=== PATIENT | male | born 1995 | race Caucasian/White ===

== ENCOUNTER 2018-04-08 10:58 | Emergency (ER) | payer OTHER ==
[~2018-04-08] VITALS: Ht 170.2 cm; Wt 59.0 kg
[2018-04-08 11:01] VITALS: BP 116/54
--- NOTE | 2018-04-08 11:11 | ED GENERAL ADULT ---
History of Present Illness General Chief Complaint: Male Genitourinary Problems Stated Complaint: STD TESTING Source: patient Exam Limitations: no limitations Vital Signs & Intake/Output Vital Signs & Intake/Output Vital Signs Date Time Temp Pulse Resp B/P B/P Pulse O2 O2 Flow FiO2 Mean Ox Delivery Rate 04/08 1101 97.4 110 20 116/54 98 Room Air Allergies Coded Allergies: No Known Allergies (06/10/17) Reconcile Medications No Known Home Medications Triage Note: PT TO ED REQUESTING STD TESTING. DENIES S/S. Triage Nurses Notes Reviewed? yes HPI: 22-year-old male presents emergency Department requesting STD screening. Patient states that he called [facility] and they recommended he go to the walk-in for STD screening. He has not been exposed to any STDs that he is aware of, no new sexual partners. He is monogammous with his girlfriend. He states he just wants to get checked out. He has no current symptoms. No dysuria, penile discharge, abdominal pain, fevers, joint pains, lesions. (Alyssia Billings) Past History Travel History Traveled to [place] past 21 day No Medical History Any Pertinent Medical History? none Surgical History Surgical History: non-contributory Psychosocial History What is your primary language Indonesian Tobacco Use: Never used ETOH Use: denies use Illicit Drug Use: denies illicit drug use Family History Hx Contributory? No (Alyssia Billings) Review of Systems Review of Systems Constitutional: Reports: no symptoms. EENTM: Reports: no symptoms. Respiratory: Reports: no symptoms. Cardiovascular: Reports: no symptoms. GI: Reports: no symptoms. Genitourinary: Reports: see HPI. Musculoskeletal: Reports: no symptoms. Skin: Reports: no symptoms. Neurological/Psychological: Reports: no symptoms. Hematologic/Endocrine: Reports: no symptoms. Immunologic/Allergic: Reports: no symptoms. All Other Systems: Reviewed and Negative (Alyssia Billings) Physical Exam Physical Exam General Appearance: well developed/nourished, no apparent distress, alert, awake Head: atraumatic, normal appearance Eyes: Bilateral: normal appearance. Ears, Nose, Throat: hearing grossly normal Neck: normal inspection, supple, full range of motion Respiratory: no respiratory distress Back: normal inspection, normal range of motion Extremities: normal inspection Neurologic/Psych: awake, alert, oriented x 3 Skin: intact, normal color, warm/dry Core Measures ACS in differential dx? No CVA/TIA Diagnosis: No Sepsis Present: No Sepsis Focused Exam Completed? No (Kaye SUMMERS,Alyssia Pollock) Progress Differential Diagnoses I considered the following diagnoses in my evaluation of the patient: [Sexually- transmitted infection, STD screening] Plan of Care: Orders Procedure Date/time Status CHLAMYDIA-GC DNA PROBE 04/08 1108 Active Microbiology 04/08 1109 URINE ROUT: GC DNA Probe - RECD 04/08 1109 URINE ROUT: Chlamydia DNA Probe (LUIS E) - RECD Patient was offered urine STD screening as well as blood tests to assess for HIV , SYPHILIS, HEPATITS. He requests urine screening only, declines blood tests. As patient is asymptomatic and reports no known exposure prophlactic treatment withheld pending gc/chlamydia results. Patient agrees with plan of care. Initial ED EKG: none (Alyssia Billings) Departure Departure Disposition: HOME OR SELF CARE Condition: Stable Clinical Impression Primary Impression: Encounter for assessment of STD exposure Referrals: Unknown (PCP/Family) Additional Instructions: We will call you if the results of your urine tests are abnormal in two days. If you develop any symptoms or other concerns please return to the emergency department. Please note that there might be incidental findings in your evaluation that are unrelated to the current emergency department visit. Please notify your primary care doctor about this emergency department visit in order to obtain and review all of the testing performed so that these incidental findings can be monitored as needed. If you had an x-ray performed, please understand that some fractures may not be seen on the initial set of x-rays. If your symptoms persist you might need a repeat set of x-rays to check for such a fracture. If you had a laceration evaluated, please understand that foreign bodies such as glass or wood may not be visible to the naked eye or on plain x-rays. If the wound becomes red, swollen, increasingly more painful or if there is any drainage from the wound, please have it reevaluated by a physician for the possibility of a retained foreign body. If you're unable to follow up as outlined in the discharge instructions please return to the emergency department. Thank you for choosing the [facility] Emergency Department for your care. It was a pleasure to serve you today. Departure Forms: Customer Survey General Discharge Information Prescriptions: Current Visit Scripts No Known Home Medications (Alyssia Billings) PA/REHAB SERVICES AIDE Co-Sign Statement Statement: ED Attending supervision documentation- [] I saw and evaluated the patient. I have also reviewed all the pertinent lab results and diagnostic results. I agree with the findings and the plan of care as documented in the PA's/REHAB SERVICES AIDE's documentation. [X] I have reviewed the ED Record and agree with the PA's/REHAB SERVICES AIDE's documentation. [] Additions or exceptions (if any) to the PAs/REHAB SERVICES AIDE's note and plan are summarized below: [] (Ean WATTS,Allan Virgen) Critical Care Note Critical Care Note Critical Care Time: non-applicable (Alyssia Billings)
[2018-04-11] MEDS ORDERED: VIBRAMYCIN100 MG PO (13:01)
== END 2018-04-08 11:13 ==
LOC: ERH 10:58
DX: Z20.2 Contact with and (suspected) exposure to infections with a predominantly sexual mode of transmission (principal)
CPT/HCPCS: 87491; 87591